=== PATIENT | female | born 1940 | race African-American/Black ===

== ENCOUNTER → 2016-11-26 | Outpatient (CLI) | payer MEDICARE, MEDICAID ==
[~2016-11-26] MED LIST: ACYC-57 PO; AMLO2.5T PO; ASPI-650 PO; BENZ100C PO; CEFD300C37 PO; DILT120C9 PO; ISOS30TA8 PO; LEVO125T PO; LEVO125T5 PO; LEVO750T26 PO; LOSA100T6 PO; LOSA50TA2 PO; METF500T PO; METH2.5T PO; METO-93 PO; NITR0.4T SL; PRAV20TA2 PO; PRED5TAB19 PO; SULF500T PO; SULF500T36 PO
== END | disposition home or self-care (01) ==
LOC: CFH 12:19
PROVIDERS: ATTEND Internal Medicine Cardiovascular Disease
DX: I35.0 Nonrheumatic aortic (valve) stenosis (principal); I34.0 Nonrheumatic mitral (valve) insufficiency; I10 Essential (primary) hypertension; I25.2 Old myocardial infarction; E11.9 Type 2 diabetes mellitus without complications; Z95.5 Presence of coronary angioplasty implant and graft
CPT/HCPCS: 93306

== ENCOUNTER 2017-02-22 12:24 | Observation (INO) | payer MEDICARE, MEDICAID ==
[~2017-02-22] VITALS: Ht 154.9 cm; Wt 60.1 kg
[2017-02-22] MEDS ORDERED: CHOL2000 PO (12:43)
[2017-02-22] MEDS ORDERED: ASPIRIN 81 MG TABLET CHEW PO ONE (13:00)
[2017-02-22] MEDS ORDERED: SODIUM CHLORIDE FLUSH 10ML SYR IVF ONE (13:00)
[2017-02-22] MEDS ORDERED: ASPIRIN 81 MG TABLET CHEW ONE (13:20)
[2017-02-22] MEDS ORDERED: NITROGLYCERIN SINGLE TAB 0.4 MG SL ONE (13:20)
[2017-02-22 13:49] LABS: BLOOD UREA NITROGEN 13 mg/dL (7-18)
[2017-02-22] MEDS: NITROGLYCERIN SINGLE TAB 0.4 MG SL PRN ×3 (14:13→14:30)
[2017-02-22 14:23] LABS: HEMATOCRIT 43.4 % (34.6-47.8); HEMOGLOBIN 14.8 g/dL (11.7-16.4); WHITE BLOOD COUNT 5.6 x10^3/uL (3.4-10)
[2017-02-22] MEDS ORDERED: MORPHINE SULFATE 4 MG/ML, 1ML IVPush ONE (15:00)
[2017-02-22] MEDS ORDERED: ACETAMINOPHEN 325 MG TABLET PO PRN (16:30)
[2017-02-22] MEDS ORDERED: NITROGLYCERIN 0.4 MG BOTTLE (25 TABS) SL PRN (16:30)
[2017-02-22 17:11] LABS: IS PT STATUS REG ER OR PRE ER? YES
[2017-02-22 18:02] VITALS: BP 155/85
[2017-02-22 19:38] VITALS: BP 152/91
[2017-02-22] MEDS ORDERED: ATORVASTATIN 80 MG TABLET PO SCH (21:00)
[2017-02-22] MEDS: HEPARIN 5,000 UNITS/ML, 1ML SQ SCH (22:37)
[2017-02-22] MEDS: SULFASALAZINE 500 MG TABLET PO SCH (22:37)
[2017-02-22] MEDS: INSULIN ASPART 100 UNITS/ML, PEN SQ-INSULIN SCH (22:38)
[2017-02-22 22:46] LABS: IS PT STATUS REG ER OR PRE ER? NO
[2017-02-22 22:50] VITALS: BP 161/95
[2017-02-22 23:50] LABS: DAU SCREEN DISCLAIMER
[2017-02-23 02:31] VITALS: BP 160/73
[2017-02-23] MEDS ORDERED: FLU VACC QS2017-18 (36MOS+) UP/PF 0.5 ML IM-VACC ONE (05:30)
[2017-02-23] MEDS ORDERED: PNEUMOCOCCAL 23 VACCINE IM-VACC ONE (05:30)
[2017-02-23] MEDS ORDERED: ASPIRIN 325 MG TABLET EC PO SCH (06:00)
[2017-02-23] MEDS: HEPARIN 5,000 UNITS/ML, 1ML SQ SCH ×2 (06:06→11:08)
[2017-02-23 06:11] LABS: HEMATOCRIT 45.6 % (34.6-47.8); HEMOGLOBIN 15.4 g/dL (11.7-16.4); WHITE BLOOD COUNT 5.1 x10^3/uL (3.4-10)
[2017-02-23 06:29] LABS: BLOOD UREA NITROGEN 16 mg/dL (7-18)
[2017-02-23] MEDS ORDERED: LEVOTHYROXINE 125 MCG TABLET PO SCH (06:30)
[2017-02-23 06:45] LABS: DIFF TOTAL CELLS COUNTED 100 CELL DIFF
[2017-02-23 06:49] LABS: POLYCHROMASIA 1+; VERIFY COUNTS? YES
[2017-02-23] MEDS: INSULIN ASPART 100 UNITS/ML, PEN SQ-INSULIN SCH ×3 (07:00→16:00)
[2017-02-23 07:28] VITALS: BP 150/88
[2017-02-23] MEDS ORDERED: REGADENOSON 0.4 MG/5 ML SYRINGE ONE (08:38)
[2017-02-23] MEDS ORDERED: LOSARTAN 50MG TABLET PO SCH (09:00)
[2017-02-23] MEDS ORDERED: DILTIAZEM 120 MG CAP.ER.24H PO SCH (09:00)
[2017-02-23] MEDS ORDERED: METOPROLOL SUCCINATE 50 MG TAB.ER.24H PO SCH (09:00)
[2017-02-23] MEDS ORDERED: AMLODIPINE 2.5 MG TABLET PO SCH (09:00)
[2017-02-23] MEDS: SULFASALAZINE 500 MG TABLET PO SCH (10:55)
[2017-02-23 14:26] VITALS: BP 129/83
[2017-02-23] MEDS ORDERED: PRAV20TA2 PO (15:52)
[2017-02-23] MEDS ORDERED: ISOS120T2 PO (15:52)
[2017-02-23] MEDS ORDERED: NITR0.3T5 SUBMUC (15:53)
== END 2017-02-23 17:23 | disposition home or self-care (01) ==
LOC: ED 15:20 → INTOOBSV 15:34 → EDIP 15:34 → 5SO 17:47
PROVIDERS: ADMIT Hospitalist; ATTEND Hospitalist
DX: I25.110 Atherosclerotic heart disease of native coronary artery with unstable angina pectoris (principal); E78.5 Hyperlipidemia, unspecified; I10 Essential (primary) hypertension; M06.9 Rheumatoid arthritis, unspecified; E11.9 Type 2 diabetes mellitus without complications; D75.89 Other specified diseases of blood and blood-forming organs; E78.00 Pure hypercholesterolemia, unspecified; I34.1 Nonrheumatic mitral (valve) prolapse; N17.9 Acute kidney failure, unspecified; Z82.49 Family history of ischemic heart disease and other diseases of the circulatory system; Z87.891 Personal history of nicotine dependence; Z95.5 Presence of coronary angioplasty implant and graft; Z79.82 Long term (current) use of aspirin; Z90.49 Acquired absence of other specified parts of digestive tract; Z23 Encounter for immunization
CPT/HCPCS: 36415; 71010; 78452; 80048; 80061; 80307; 82040; 82607; 82746; 82962; 83036; 83735; 83880; 84443; 84484; 85025; 85379; 85610; 85730; 90471; 90472; 90686; 90732; 93005; 93017; 96372; 99285; A9502; C9898; G0008; G0009; G0378; J1644; J1815; J2785; G0479

== ENCOUNTER 2017-08-11 10:08 | Observation (INO) | payer MEDICARE, MEDICAID ==
[2017-08-10 12:30] LABS: ANION GAP 7 mmol/L (5-15); CALCIUM 8.8 mg/dL (8.5-10.1); CHLORIDE 110 mmol/L (98-107); CREATININE 1.02 mg/dL (0.55-1.02)
[~2017-08-11] VITALS: Ht 157.5 cm; Wt 65.8 kg
[~2017-08-11 10:08] MED LIST changes: +ACYC-114 PO; +CHOL2000 PO; +FOLI-17 PO; +ISOS120T2 PO; +NITR0.3T5 SUBMUC; +POLY17PO5 PO
[2017-08-11] MEDS ORDERED: methylPREDNISolone SOD SUCC 125 MG/2 ML IVPush ONE (11:00)
[2017-08-11] MEDS ORDERED: DIPHENHYDRAMINE 50 MG/ML, 1ML IVPush ONE (11:00)
[2017-08-11] MEDS ORDERED: MIDAZOLAM 1 MG/ML, 2ML ONE ×2 (11:56→12:36)
[2017-08-11] MEDS ORDERED: FENTANYL PF 100 MCG/2ML ONE (11:56)
[2017-08-11] MEDS ORDERED: DIPHENHYDRAMINE 50 MG/ML, 1ML ONE (11:56)
[2017-08-11] MEDS ORDERED: LIDOCAINE-MPF 2% ,5ML ONE (11:57)
[2017-08-11] MEDS ORDERED: methylPREDNISolone SOD SUCC 125 MG/2 ML ONE (12:09)
[2017-08-11] MEDS ORDERED: BIVALIRUDIN 250 MG ONE (12:28)
[2017-08-11] MEDS ORDERED: PRASUGREL 10 MG TABLET ONE (12:29)
[2017-08-11] MEDS ORDERED: TICAGRELOR 90 MG TABLET ONE (12:30)
[2017-08-11] MEDS ORDERED: CLOPIDOGREL 300 MG TABLET ONE (12:37)
[2017-08-11] MEDS ORDERED: SODIUM CHLORIDE 0.9% 1,000 ML IV SCH (13:09)
[2017-08-11] MEDS ORDERED: BIVALIRUDIN 250 MG in DEXTROSE 5% 50 ML IV SCH (13:09)
[2017-08-11] MEDS ORDERED: POLYETHYLENE GLYCOL 17 GM PACKET PO PRN (13:30)
[2017-08-11] MEDS ORDERED: NITROGLYCERIN 0.4 MG BOTTLE (25 TABS) SL SCH (13:30)
[2017-08-11] MEDS ORDERED: NITROGLYCERIN 0.4 MG BOTTLE (25 TABS) SL ONE (14:43)
[2017-08-11 19:47] VITALS: BP 158/82
[2017-08-11] MEDS: METOPROLOL SUCCINATE 50 MG TAB.ER.24H PO SCH (20:19)
[2017-08-11] MEDS ORDERED: PRAVASTATIN 20 MG TABLET PO SCH (21:00)
[2017-08-12 01:15] VITALS: BP 136/81
[2017-08-12 04:58] LABS: ALBUMIN 3.6 g/dL (3.4-5.0); ANION GAP 9 mmol/L (5-15); CHLORIDE 110 mmol/L (98-107); CREATININE 1.03 mg/dL (0.55-1.02)
[2017-08-12] MEDS ORDERED: LEVOTHYROXINE 125 MCG TABLET PO SCH (07:30)
[2017-08-12] MEDS: METOPROLOL SUCCINATE 50 MG TAB.ER.24H PO SCH (07:38)
[2017-08-12 07:49] VITALS: BP 142/82
[2017-08-12] MEDS ORDERED: DILTIAZEM 120 MG CAP.ER.24H PO SCH (09:00)
[2017-08-12] MEDS ORDERED: FOLIC ACID 1 MG TABLET PO SCH (09:00)
[2017-08-12] MEDS ORDERED: ASPIRIN 325 MG TABLET EC PO SCH (09:00)
[2017-08-12] MEDS ORDERED: ISOSORBIDE MONONITRATE ER 60 MG TABLET PO SCH (09:00)
[2017-08-12] MEDS ORDERED: ACYCLOVIR 400 MG TABLET PO SCH (09:00)
[2017-08-12] MEDS ORDERED: AMLODIPINE 5 MG TABLET PO SCH (09:00)
[2017-08-12] MEDS ORDERED: LOSARTAN 50MG TABLET PO SCH (09:00)
[2017-08-12] MEDS ORDERED: CHOLECALCIFEROL 1,000 UNIT TABLET PO SCH (09:00)
[2017-08-12] MEDS ORDERED: CLOPIDOGREL 75 MG TABLET PO SCH (09:00)
[2017-08-12] MEDS ORDERED: SULFASALAZINE 500 MG TABLET PO SCH (09:00)
[2017-08-12] MEDS ORDERED: CLOP75TA PO (09:04)
[2017-08-12] MEDS ORDERED: NITROGLYCERIN 0.4 MG BOTTLE (25 TABS) SL PRN (13:30)
== END 2017-08-12 12:57 | disposition home or self-care (01) ==
LOC: CACL 10:08 → 5SO 13:09 → CACL 13:45 → 5SO 17:12 → DCLOUNGE 08-12 12:43
PROVIDERS: ADMIT Internal Medicine Cardiovascular Disease; ATTEND Internal Medicine Cardiovascular Disease
DX: I25.110 Atherosclerotic heart disease of native coronary artery with unstable angina pectoris (principal); E03.9 Hypothyroidism, unspecified; E78.5 Hyperlipidemia, unspecified; I10 Essential (primary) hypertension; E11.9 Type 2 diabetes mellitus without complications; Z98.61 Coronary angioplasty status
CPT/HCPCS: 36415; 80048; 82040; 93005; 93458; 93571; 99156; 99157; C1725; C1760; C1769; C1874; C1887; C1894; C9600; G0378; J0583; J1200; J2250; J2930; J3010; J3490; Q9967

== ENCOUNTER → 2018-09-20 | Outpatient (CLI) | payer MEDICARE, MEDICAID ==
[~2018-09-20] MED LIST changes: -AMLO2.5T PO; +AMLO2.5T5 PO; +CLOP75TA PO; -ISOS120T2 PO; +ISOS120T4 PO; +LOSA100T14 PO; -LOSA100T6 PO
== END | disposition home or self-care (01) ==
LOC: CVU 14:11
PROVIDERS: ATTEND Internal Medicine Cardiovascular Disease
DX: I37.1 Nonrheumatic pulmonary valve insufficiency (principal); I25.10 Atherosclerotic heart disease of native coronary artery without angina pectoris; I10 Essential (primary) hypertension; E78.5 Hyperlipidemia, unspecified; E11.9 Type 2 diabetes mellitus without complications; Z87.891 Personal history of nicotine dependence
CPT/HCPCS: 93306

== ENCOUNTER 2019-10-06 16:09 | Observation (INO) | payer MEDICARE, MEDICAID ==
[~2019-10-06] VITALS: Ht 157.5 cm; Wt 69.0 kg
[~2019-10-06 16:09] MED LIST changes: +ASPI-515 PO; +DILT120C48 PO; -DILT120C9 PO; +GLIP5TAB10 PO; -NITR0.4T SL; +NITR0.4T41 SL; +PANT40TA3 PO
[2019-10-06] MEDS ORDERED: SODIUM CHLORIDE FLUSH 10ML SYR IVF ONE (17:00)
[2019-10-06 17:10] LABS: ALBUMIN 3.7 g/dL (3.4-5.0); ANION GAP 7 mmol/L (5-15); CALCIUM 8.8 mg/dL (8.5-10.1); CHLORIDE 110 mmol/L (98-107)
[2019-10-06 17:11] LABS: MEAN CORPUSCULAR HEMOGLOBIN 33.9 pg (27.0-34.8); MEAN CORPUSCULAR HGB CONC 33.7 g/dL (32.4-35.8); MEAN CORPUSCULAR VOLUME 100.6 fL (80-100); MEAN PLATELET VOLUME 8.9 fL (7.4-10.4); PLATELET COUNT 185 x10^3/uL (130-400); RED BLOOD COUNT 4.63 x10^6/uL (3.82-5.3)
[2019-10-06 17:15] LABS: ALANINE AMINOTRANSFERASE 32 U/L (12-78); ALKALINE PHOSPHATASE 55 U/L (45-117); BILIRUBIN,TOTAL 0.5 mg/dL (0.2-1.0); CREATININE 1.25 mg/dL (0.55-1.02); TOTAL PROTEIN 8.2 g/dL (6.4-8.2); TROPONIN I < 0.015 ng/mL (0.000-0.045)
[2019-10-06 17:22] LABS: BASOPHILS # (AUTO) 0.06 x10^3/uL (0-0.1); BASOPHILS % (AUTO) 1 % (0-1); EOSINOPHILS # (AUTO) 0.28 x10^3/uL (0-0.4); EOSINOPHILS % (AUTO) 5 % (1-7); LYMPHOCYTES # (AUTO) 1.97 x10^3/uL (1-3.4); LYMPHOCYTES % (AUTO) 33 % (22-44); MD SCAN; MONOCYTES # (AUTO) 0.47 x10^3/uL (0.2-0.8); MONOCYTES % (AUTO) 8 % (2-9); NEUTROPHILS # (AUTO) 3.21 x10^3/uL (1.8-6.8); NEUTROPHILS % (AUTO) 54 % (42-75)
--- NOTE | 2019-10-06 17:25 | NUR ---
CONTINUOUS CP FOR SEVERAL WEEKS THAT DOES NOT GO AWAY WITH NITRO. PT STATES SOMETIMES IT RADIATES TO THE EXTREMITIES. BEDSIDE VASCULAR STUDY COMPLETED.
--- NOTE | 2019-10-06 18:22 | NUR ---
PT AWARE OF INTENTION TO ADMIT. CONTINUE TO MONITOR
--- NOTE | 2019-10-06 18:37 | NUR ---
HOSPITALIST AT BEDSIDE.
--- NOTE | 2019-10-06 18:51 | NUR ---
REPORT TO [facility]
[2019-10-06] MEDS ORDERED: hydrALAzine 20 MG/ML, 1ML IVPush PRN (19:00)
[2019-10-06] MEDS ORDERED: ONDANSETRON 2MG/ML, 2ML IVPush PRN (19:00)
[2019-10-06] MEDS ORDERED: morphine SULFATE 10 MG/ML, 1ML IVPush PRN (19:00)
[2019-10-06] MEDS: INSULIN LISPRO 100 UNITS/ML, PEN SQ-INSULIN SCH (21:00)
[2019-10-06 21:30] VITALS: BP 133/73
[2019-10-06] MEDS: SODIUM CHLORIDE 0.9% 1,000 ML IV SCH (22:26)
[2019-10-07 03:31] VITALS: BP 148/69
[2019-10-07 05:15] LABS: BASOPHILS # (AUTO) 0.03 x10^3/uL (0-0.1); BASOPHILS % (AUTO) 1 % (0-1); EOSINOPHILS # (AUTO) 0.24 x10^3/uL (0-0.4); EOSINOPHILS % (AUTO) 4 % (1-7); LYMPHOCYTES % (AUTO) 37 % (22-44); MD NO; MEAN CORPUSCULAR HEMOGLOBIN 33.5 pg (27.0-34.8); MEAN CORPUSCULAR HGB CONC 33.5 g/dL (32.4-35.8); MEAN CORPUSCULAR VOLUME 100.1 fL (80-100); MEAN PLATELET VOLUME 8.5 fL (7.4-10.4); MONOCYTES # (AUTO) 0.51 x10^3/uL (0.2-0.8); MONOCYTES % (AUTO) 9 % (2-9); NEUTROPHILS # (AUTO) 2.81 x10^3/uL (1.8-6.8); NEUTROPHILS % (AUTO) 49 % (42-75); PLATELET COUNT 158 x10^3/uL (130-400); RED BLOOD COUNT 4.14 x10^6/uL (3.82-5.3); RED CELL DISTRIBUTION WIDTH 14.6 % (9.6-15.2)
[2019-10-07 05:31] LABS: ANION GAP 8 mmol/L (5-15); CALCIUM 8.2 mg/dL (8.5-10.1); CHLORIDE 115 mmol/L (98-107)
[2019-10-07 05:38] LABS: CREATININE 1.08 mg/dL (0.55-1.02); TROPONIN I < 0.015 ng/mL (0.000-0.045)
[2019-10-07 06:30] VITALS: BP 130/78
[2019-10-07] MEDS: INSULIN LISPRO 100 UNITS/ML, PEN SQ-INSULIN SCH ×4 (07:00→20:01)
[2019-10-07] MEDS: SODIUM CHLORIDE 0.9% 1,000 ML IV SCH ×2 (07:51→17:45)
[2019-10-07] MEDS: ACYCLOVIR 400 MG TABLET PO SCH (09:00)
[2019-10-07] MEDS: CLOPIDOGREL 75 MG TABLET PO SCH (09:37)
[2019-10-07] MEDS: AMLODIPINE 10 MG TAB PO SCH (09:37)
[2019-10-07] MEDS: ISOSORBIDE MONONITRATE ER 60 MG TABLET PO SCH (09:37)
[2019-10-07] MEDS: METOPROLOL SUCCINATE 50 MG TAB.ER.24H PO SCH ×2 (09:37→21:03)
[2019-10-07] MEDS: DILTIAZEM 120 MG CAP.ER.24H PO SCH (09:37)
[2019-10-07] MEDS: LEVOTHYROXINE 125 MCG TABLET PO SCH (09:38)
[2019-10-07] MEDS: ASPIRIN 81 MG TABLET EC PO SCH (09:38)
[2019-10-07] MEDS: LOSARTAN 100 MG TAB PO SCH (09:38)
[2019-10-07] MEDS: PANTOPRAZOLE 40MG TABLET PO SCH (09:38)
[2019-10-07] MEDS: CHOLECALCIFEROL 1,000 UNIT TABLET PO SCH (09:39)
[2019-10-07] MEDS: FOLIC ACID 1 MG TABLET PO SCH (09:39)
[2019-10-07] MEDS: SULFASALAZINE 500 MG TABLET PO SCH (09:39)
[2019-10-07 12:21] VITALS: BP 129/74
[2019-10-07] MEDS ORDERED: BISACODYL 10 MG SUPP PR PRN (19:00)
[2019-10-07 19:39] VITALS: BP 119/72
[2019-10-07] MEDS ORDERED: PRAVASTATIN 20 MG TABLET PO SCH (21:00)
[2019-10-08 01:05] VITALS: BP 130/81
[2019-10-08] MEDS: SODIUM CHLORIDE 0.9% 1,000 ML IV SCH (03:19)
[2019-10-08 06:09] VITALS: BP 114/79
[2019-10-08] MEDS: INSULIN LISPRO 100 UNITS/ML, PEN SQ-INSULIN SCH ×2 (07:00→11:05)
[2019-10-08] MEDS: ACYCLOVIR 400 MG TABLET PO SCH (08:07)
[2019-10-08] MEDS: ASPIRIN 81 MG TABLET EC PO SCH (08:15)
[2019-10-08] MEDS: METOPROLOL SUCCINATE 50 MG TAB.ER.24H PO SCH (08:15)
[2019-10-08] MEDS: CHOLECALCIFEROL 1,000 UNIT TABLET PO SCH (08:15)
[2019-10-08] MEDS: SULFASALAZINE 500 MG TABLET PO SCH (08:15)
[2019-10-08] MEDS: PANTOPRAZOLE 40MG TABLET PO SCH (08:16)
[2019-10-08] MEDS: CLOPIDOGREL 75 MG TABLET PO SCH (08:16)
[2019-10-08] MEDS: LOSARTAN 100 MG TAB PO SCH (08:16)
[2019-10-08] MEDS: FOLIC ACID 1 MG TABLET PO SCH (08:16)
[2019-10-08] MEDS: DILTIAZEM 120 MG CAP.ER.24H PO SCH (08:16)
[2019-10-08] MEDS: LEVOTHYROXINE 125 MCG TABLET PO SCH (08:16)
[2019-10-08] MEDS: ISOSORBIDE MONONITRATE ER 60 MG TABLET PO SCH (08:16)
[2019-10-08] MEDS: AMLODIPINE 10 MG TAB PO SCH (08:16)
== END 2019-10-08 13:20 | disposition home or self-care (01) ==
LOC: ED 17:56 → EDIP 18:15 → INTOOBSV 18:15 → 5SO 19:54
PROVIDERS: ADMIT Internal Medicine; ATTEND Internal Medicine
DX: R07.89 Other chest pain (principal); I10 Essential (primary) hypertension; E11.22 Type 2 diabetes mellitus with diabetic chronic kidney disease; I25.110 Atherosclerotic heart disease of native coronary artery with unstable angina pectoris; E03.9 Hypothyroidism, unspecified; I12.9 Hypertensive chronic kidney disease with stage 1 through stage 4 chronic kidney disease, or unspecified chronic kidney disease; N18.9 Chronic kidney disease, unspecified; M06.9 Rheumatoid arthritis, unspecified; M19.90 Unspecified osteoarthritis, unspecified site; I25.2 Old myocardial infarction; E78.5 Hyperlipidemia, unspecified; Z79.82 Long term (current) use of aspirin; Z79.01 Long term (current) use of anticoagulants; Z79.899 Other long term (current) drug therapy; Z95.5 Presence of coronary angioplasty implant and graft; J98.11 Atelectasis; Z79.84 Long term (current) use of oral hypoglycemic drugs; Z87.891 Personal history of nicotine dependence
CPT/HCPCS: 36415; 71045; 73564; 80048; 80053; 82962; 84443; 84484; 85025; 85379; 93005; 93308; 93971; 99285; G0378; J1815; J7030

== ENCOUNTER 2020-03-11 14:56 | Emergency (ER) | payer MEDICARE, MEDICAID ==
[~2020-03-11] VITALS: Ht 157.5 cm; Wt 64.0 kg
[2020-03-11] MEDS ORDERED: FAMOTIDINE 20 MG TABLET PO ONE (15:30)
[2020-03-11] MEDS ORDERED: hydrOXyzine 50MG TABLET PO ONE (16:00)
[2020-03-11] MEDS ORDERED: hydrOXyzine 50MG TABLET ONE (18:44)
[2020-03-11] MEDS ORDERED: FAMOTIDINE 20 MG TABLET ONE (18:44)
[2020-03-11] MEDS ORDERED: DIPHENHYDRAMINE 50 MG CAPSULE ONE (19:51)
[2020-03-11] MEDS ORDERED: DIPHENHYDRAMINE 12.5MG/5ML, 10ML UDC PO ONE (20:00)
--- NOTE | 2020-03-11 20:14 | NUR ---
LAB AT BEDSIDE.
[2020-03-11 20:46] VITALS: BP 163/73
[2020-03-11 21:19] LABS: BASOPHILS % (AUTO) 1 % (0-1); EOSINOPHILS % (AUTO) 3 % (1-7); LYMPHOCYTES % (AUTO) 26 % (22-44); MEAN CORPUSCULAR HEMOGLOBIN 32.8 pg (27.0-34.8); MEAN CORPUSCULAR HGB CONC 33.3 g/dL (32.4-35.8); MEAN PLATELET VOLUME 7.9 fL (7.4-10.4); MONOCYTES % (AUTO) 9 % (2-9); NEUTROPHILS % (AUTO) 62 % (42-75); PLATELET COUNT 216 x10^3/uL (130-400); RED BLOOD COUNT 4.63 x10^6/uL (3.82-5.3); RED CELL DISTRIBUTION WIDTH 14.6 % (9.6-15.2)
[2020-03-11 21:20] LABS: MD NO
[2020-03-11 21:26] LABS: ANION GAP 6 mmol/L (5-15); CALCIUM 9.4 mg/dL (8.5-10.1); CHLORIDE 111 mmol/L (98-107); CREATININE 1.15 mg/dL (0.55-1.02)
== END 2020-03-11 21:59 ==
LOC: ED 20:45
DX: R22.0 Localized swelling, mass and lump, head (principal); T78.3XXA Angioneurotic edema, initial encounter; R06.02 Shortness of breath; I10 Essential (primary) hypertension; E11.9 Type 2 diabetes mellitus without complications; E78.5 Hyperlipidemia, unspecified; I25.2 Old myocardial infarction; Z87.891 Personal history of nicotine dependence; Z98.61 Coronary angioplasty status
CPT/HCPCS: 36415; 71045; 80048; 85025; 99284; J7512